=== PATIENT | male | born 1950 | race Caucasian/White ===

== ENCOUNTER → 2017-02-03 | Outpatient (CLI) | payer MEDICARE, OTHER | END | disposition home or self-care (01) | LOC: PCVCCLINIC 10:56 | PROVIDERS: ATTEND Internal Medicine | DX: I48.0 Paroxysmal atrial fibrillation (principal); I10 Essential (primary) hypertension; E78.5 Hyperlipidemia, unspecified; E11.9 Type 2 diabetes mellitus without complications; Z79.84 Long term (current) use of oral hypoglycemic drugs; Z79.899 Other long term (current) drug therapy; Z79.82 Long term (current) use of aspirin | CPT/HCPCS: 93005; G0463 ==

== ENCOUNTER → 2018-02-03 | Outpatient (CLI) | payer MEDICARE, OTHER | END | disposition home or self-care (01) | LOC: PCVCCLINIC 09:57 | PROVIDERS: ATTEND Internal Medicine | DX: I48.0 Paroxysmal atrial fibrillation (principal); I10 Essential (primary) hypertension; E11.9 Type 2 diabetes mellitus without complications; Z86.79 Personal history of other diseases of the circulatory system; Z79.4 Long term (current) use of insulin; Z79.84 Long term (current) use of oral hypoglycemic drugs; Z87.891 Personal history of nicotine dependence | CPT/HCPCS: 93005; G0463 ==

== ENCOUNTER → 2018-06-30 | Outpatient (CLI) | payer MEDICARE, OTHER | LOC: PCVCCLINIC 14:32 | PROVIDERS: ATTEND Internal Medicine | DX: I48.0 Paroxysmal atrial fibrillation (principal); R06.00 Dyspnea, unspecified; I10 Essential (primary) hypertension; E11.9 Type 2 diabetes mellitus without complications; G47.30 Sleep apnea, unspecified; Z79.84 Long term (current) use of oral hypoglycemic drugs; Z79.899 Other long term (current) drug therapy; Z87.891 Personal history of nicotine dependence | CPT/HCPCS: 93005; G0463 ==

== ENCOUNTER → 2018-07-03 | Outpatient (CLI) | payer MEDICARE, OTHER ==
--- NOTE | 2018-07-05 17:46 | PCVCIMAG ---
APPROVED REPORT Study performed: 07/03/2018 08:21:36 EXAM: Comprehensive 2D, Doppler, and color-flow Echocardiogram Patient Location: Echo lab Room #: 2Status: routine BSA: 2.33 HR: 54 bpmBP: 132/74 mmHg Rhythm: NSR Other Information Study Quality: Good Indications Diabetes Atrial Fibrillation Hypertension/HDD 2D Dimensions IVSd: 10.14 (7-11mm)LVOT Diam: 23.98 (18-24mm) LVDd: 56.56 mm PWd: 10.61 (7-11mm)Ascending Ao: 39.64 (22-36mm) LVDs: 40.62 (25-40mm) Left Atrium: 41.49 (27-40mm) Aortic Root: 34.56 mm LV Single Plane 4CH: 53.00 % LV Single Plane 2CH: 50.41 % Biplane EF: 54.0 % Volumes Left Atrial Volume (Systole) Single Plane 4CH: 86.75 mLSingle Plane 2CH: 86.70 mL Biplane LA Volume: 88.00 mLLA ESV Index: 38.00 mL/m2 Aortic Valve AoV Peak Deng.: 1.62 m/s AO Peak Gr.: 10.78 mmHgLVOT Max P.69 mmHg LVOT Max V: 1.14 m/s ZAK Vmax: 3.18 cm2 AI Vmax: 3.53 m/s AI [place]: 1.88 m/s2 AI PHT: 544.17 ms Mitral Valve E/A Ratio: 0.6 MV Decel. Time: 317.56 ms MV E Max Deng.: 0.38 m/s MV A Deng.: 0.63 m/s IVRT: 134.95 ms TDI E/Lateral E': 5.43E/Medial E': 7.60 Medial E' Deng.: 0.05 m/s Lateral E' Deng.: 0.07 m/s Pulmonary Valve PV Peak Deng.: 0.88 m/sPV Peak Gr.: 3.09 mmHg Pulmonary Vein P Vein S: 0.69 m/sP Vein A: 0.34 m/s P Vein D: 0.38 m/sP Vein A Dur.: 103.8 msec P Vein S/D Ratio: 1.82 Tricuspid Valve TR Peak Deng.: 2.73 m/s TR Peak Gr.: 29.72 mmHg TV Vmax: 0.58 m/sPA Pressure: 37.00 mmHg Left Ventricle The left ventricle is normal size. There is normal LV segmental wall motion. There is normal left ventricular wall thickness. Left ventricular systolic function is normal. The left ventricular ejection fraction is within the normal range. LVEF is 50-55%. Grade I - abnormal relaxation pattern. Right Ventricle The right ventricle is normal size. The right ventricular systolic function is normal. Atria Left atrium is mildly dilated. The right atrium size is normal. Aortic Valve Aortic valve is trileaflet. Aortic valve leaflets are mildly thickened. Mild to moderate aortic regurgitation. There is no aortic valvular stenosis. Mitral Valve The mitral valve is normal in structure. There is no mitral valve regurgitation noted. No evidence of mitral valve stenosis. Tricuspid Valve The tricuspid valve is normal in structure. Trace to mild tricuspid regurgitation with a PA pressure of 37-40. Mild pulmonary hypertension. Pulmonic Valve The pulmonary valve is normal in structure. There is no pulmonic valvular regurgitation. Great Vessels Aortic root is borderline dilated. IVC is not well visualized. Pericardium There is no pericardial effusion. There is no pleural effusion. <Conclusion> The left ventricle is normal size. LVEF is 50-55%. Left atrium is mildly dilated. Aortic valve is trileaflet. Aortic valve leaflets are mildly thickened. Mild to moderate aortic regurgitation. The mitral valve is normal in structure. The tricuspid valve is normal in structure. Trace to mild tricuspid regurgitation with a PA pressure of 37-40. Mild pulmonary hypertension. There is no pericardial effusion. There is no pleural effusion.
== END | disposition home or self-care (01) ==
LOC: PCVCIMAG 11:49
PROVIDERS: ATTEND Internal Medicine
DX: I48.91 Unspecified atrial fibrillation (principal); I10 Essential (primary) hypertension; E11.9 Type 2 diabetes mellitus without complications; I27.20 Pulmonary hypertension, unspecified
CPT/HCPCS: 93306

== ENCOUNTER → 2018-07-06 | Outpatient (CLI) | payer MEDICARE, OTHER ==
[~2018-07-06] MED LIST: REGADENOSON 0.4 MG/5 ML DISP.SYRIN. IV ONE
--- NOTE | 2018-07-07 12:33 | PCVCIMAG ---
APPROVED REPORT Imaging Protocol: Rest Tc-99m/Stress Tc-99m 1 day Study performed: 07/06/2018 09:27:19 Indication: Atrial Fibrillation Patient Location: Out-Patient Stress Nurse: Soledad Loyola RN, Sophia Avery RN [facility] Tech:Deisi Oneilljohn [facility] Ht: 5 ft 11 in Wt: 252 lbs BSA: 2.33 m2 HR: 57 bpm BP: 160/68 mmHg BMI: 35.14 Rhythm: Sinus Rhythm Medical History Medical History: HTN, Diabetes Medications: Norvasc, Eliquis, Atenolol, Metformin, Rhythmol, Simvastatin, Januvia, Micardis Allergies: No known drug allergies Cardiac Risk Factors: Age Pretest Chest Pain Characteristics: No chest pain Exercise History: Physically active Meds Held (24 hrs): Atenolol Resting Data Rest SPECT myocardial perfusion imaging was performed in supine position 45 minutes following the intravenous injection of 9.6 mCi of Tc-99m Sestamibi. Time of rest injection: 0930 Date: 07/06/2018 Administration Route: IV Administration Site: Right AC Pharmacologic Stress Pharmacologic stress test was performed by injecting Regadenoson 0.4 mg IV push over 10-15 seconds immediately followed by the intravenous injection of 32.7 mCi of Tc-99m Sestamibi. Time of stress injection: 1100 Date: 07/06/2018 Administration Route: IV Administration Site: Right AC Gated Stress SPECT was performed 45 minutes after stress injection. The images were gated to evaluate regional wall motion and calculate left ventricular ejection fraction. Stress Test Details Stress Test: Pharmacologic stress testing performed using 0.4 mg of regadenoson per 5 mL given IV over 10 seconds. Reason for pharmacologic stress test: back and knee issues. HRMax Heart Rate (APMHR): 152 bpm Resting HR: 57 bpmTarget HR (85% APMHR): 129 bpm Max HR Achieved: 81 bpm % of APMHR: 53 Recovery HR: 74 bpm BP Resting BP: 160/68 mmHg Max BP: 150/65 mmHg Recovery BP: 134/64 mmHg ECG Resting ECG: Sinus Rhythm Stress ECG: Sinus Rhythm Arrhythmia: None Recovery ECG: Sinus Rhythm Clinical Reason for Termination: Completed protocol Stress Symptoms: Chest pain, Lightheaded Exercise duration: 0 min 55 sec Symptoms resolved with caffeine. Stress ECG Conclusion 1. Adequate response to intravenous Lexiscan 2. Inadequate heart rate for ECG diagnosis Study Data Post stress, the left ventricular ejection was 40%.. SSS: 1 SRS: 4 SDS: 0 TID = 1.08. Perfusion There is a small area of mildly reduced uptake in the apical segment of the apex wall which is seen on the stress images as well as the resting images. This area thickens and moves normally and is most consistent with attenuation artifact. Nuclear Conclusion ECG Findings: non-diagnostic Clinical Findings: negative for ischemia Nuclear Findings: negative for ischemia Exercise Capacity: not assessed Left Ventricular Function: normal 1. Low risk study <Conclusion> 1. Adequate response to intravenous Lexiscan 2. Inadequate heart rate for ECG diagnosis
== END | disposition home or self-care (01) ==
LOC: PCVCIMAG 09:16
PROVIDERS: ATTEND Internal Medicine
DX: I48.91 Unspecified atrial fibrillation (principal)
CPT/HCPCS: 78452; 93017; A9500; J2785